=== PATIENT | male | born 1975 | race Caucasian/White ===

== ENCOUNTER 2016-11-06 23:46 | Emergency (ER) | payer OTHER ==
[2016-11-06 23:42] LABS: BASOPHIL% 0.2 % (0-2.5); DIFF IND NO; EOSINOPHIL# 0.2 X10e3 (0-0.7); EOSINOPHIL% 1.2 % (0.0-7.0); HEMATOCRIT 43.4 % (38.0-50.0); HEMOGLOBIN 14.8 gm/dL (13.0-16.0); LYMPHOCYTE# 1.4 X10e3 (1.0-3.5); LYMPHOCYTE% 9.7 % (17.0-45.0); MEAN CELL VOLUME 94.8 FL (83-96); MEAN CORPUSCULAR HEMOGLOBIN 32.3 PG (28-34); MEAN PLATELET VOLUME 7.6 FL (6.5-11.5); MONOCYTE# 1.3 X10e3 (0-1.0); MONOCYTE% 8.4 % (3.0-12.0); NEUTROPHIL# 12.1 X10e3 (1.5-7.1); NEUTROPHIL% 80.5 % (40-75); PLATELET COUNT 310 X10e3 (140-420); RED BLOOD COUNT 4.58 X10e (3.90-5.60); RED CELL DISTRIBUTION WIDTH 13.2 % (11.0-15.5)
[~2016-11-06 23:46] MED LIST: BACTRIM DS TABL1 TA2 PO; FLEXERIL; FLEXERIL10 M1 PO; HYDROCODON-ACE1 EAC4 PO; HYDROCORTISONE30 G2 EXT; IBUPROFEN; KEFLEX500 M1 PO; KETOPROFEN PO; NAPROSYN500 MG PO; NO MEDICATIONS
[2016-11-06 23:54] LABS: ALBUMIN SERUM 4.9 g/dL (3.5-5.0); ALKALINE PHOSPHATASE 94 U/L (32-92); ALT (SGPT) 21 U/L (10-40); AST (SGOT) 23 U/L (10-42); BILIRUBIN, DIRECT 0.1 mg/dL (0.0-0.2); BILIRUBIN,INDIRECT 0.5 mg/dL (0.0-0.9); BILIRUBIN,TOTAL 0.6 mg/dL (0.2-2.0); BLOOD UREA NITROGEN 8 mg/dL (9-23); CALCIUM SERUM 9.8 mg/dL (8.4-10.2); CARBON DIOXIDE 22 mmol/L (22-31); CHLORIDE 100 mmol/L (100-111); CREATININE SERUM 0.8 mg/dL (0.6-1.4); GLUCOSE FASTING 113 mg/dL (70-110); POTASSIUM 4.4 mmol/L (3.5-5.1); PROTEIN TOTAL SERUM 8.3 g/dL (6.0-8.3); SALICYLATE <4.0 mg/dL; SODIUM 134 mmol/L (135-145)
[2016-11-06 23:55] LABS: ACETAMINOPHEN <10 ug/mL; ALCOHOL BLOOD <5 mg/dL (0)
== END 2016-11-07 06:59 ==
LOC: CED 23:46
PROVIDERS: Emergency Medicine
DX: S51.811A Laceration without foreign body of right forearm, initial encounter (principal); M54.5 Low back pain; G89.29 Other chronic pain; F17.200 Nicotine dependence, unspecified, uncomplicated; X78.9XXA Intentional self-harm by unspecified sharp object, initial encounter
CPT/HCPCS: 36415; 80048; 80076; 85025; 96360; 96372; 99285; G0480; J3486

== ENCOUNTER 2016-11-07 07:40 | Inpatient (IN) | payer OTHER ==
--- NOTE | ~2016-11-07 | PN ---
Unit #: [id number] #: [id number] Patient: GAVIN WINN [id number] [facility] [address] [place] [address] [id number] I MR#: [id number] NAME: GAVIN WINN ROOM: P130 Age: 41 Sex: M Admission Date: 11/07/2016 : 1975 Attending Physician: Abe Christianson M.D. Admitting Physician: Abe Christianson M.D. Primary Care Physician: Lary Keller PROGRESS NOTES DATE 11/11/2016 DISCUSSION Mr. Winn is a 41-year-old, white male who was seen today and chart was reviewed and case was discussed with the staff. He has been anxious, withdrawn and seclusive to himself. Meanwhile, He has been taking the medication and tolerating them fairly well with no reported side effects. MENTAL STATUS EXAM Middle-aged white male who was casually dressed with fair personal hygiene, appears to be in no acute distress or discomfort. He was awake and alert with impaired attention and concentration. His mood was anxious with congruent affect. He reports having suicidal ideation but denies any homicidal ideation. His insight and judgement remains slightly impaired. TREATMENT PLAN 1. We will continue him on his current medications and treatment protocol. We will monitor his response to the medication and make further adjustments as needed. 2. We will continue to follow up. Dictated by... Lary Meadows/layla TD: 11/12/2016 22:03 JOB #: [id number] Unit #: [id number] #: [id number] Patient: GAVIN WINN PROGRESS NOTES Page 1 of 1 X Abe Christianson MD X PROGRESS NOTE
--- NOTE | ~2016-11-07 | DS ---
Unit #: [id number] #: [id number] Patient: GAVIN WINN [id number] [facility] [address] [place] [address] [id number] I MR#: [id number] NAME: GAVIN WINN ROOM: P130 Age: 41 Sex: M Admission Date: 11/07/2016 : 1975 Discharge Date: 11/12/2016 Attending Physician: Abe Christianson M.D. Primary Care Physician: Naga Caputo M.D. DISCHARGE SUMMARY IDENTIFYING DATA Mr. Winn is a 41-year-old white male, who is a resident of [place], [place], and was transferred to us from emergency room. DISCHARGE DIAGNOSES Psychiatric: Major depressive disorder, recurrent, moderate, without psychotic features. Medical: Chronic pain. Stressors: Moderate psychosocial stressors. HISTORY OF PRESENT ILLNESS Please see initial psychiatric evaluation for details. PAST PSYCHIATRIC HISTORY Please see initial psychiatric evaluation for details. PAST MEDICAL HISTORY Please see initial psychiatric evaluation for details. HOSPITAL COURSE The patient was admitted to the adult psychiatric unit at [facility] madelyn Singer and was oriented to the hospital environment. Routine p.r.n. medications were initiated and he was started back on his home medications, and Seroquel and Celexa were initiated to help with depression, and Seroquel was gradually titrated to 200 mg at bedtime and he was closely monitored. He was initially seen to be very withdrawn, depressed, seclusive to himself; however, he was slowly starting to show a therapeutic response to the medications with improvement in depression as well as sleep, which has been his main concern and was able to show a decent therapeutic response to treatment intervention including medication management with improvement in depression and anxiety and was denying any suicidal ideations, intent or plan and was wanting to go home and was willing to continue treatment on an outpatient basis and was not seen to be a danger to self or anyone else as he was denying any suicidal thoughts, intent, or plan and therefore it was decided that he will be maintained on his current medications and will be discharged home and will continue treatment on an outpatient basis. DISCHARGE MEDICATIONS Lortab 10/325 one every 4 hours as needed; Flexeril 10 mg every 8 hours as needed for pain; Protonix 40 mg b.i.d. for acid reflux; Celexa 20 mg a day Unit #: [id number] #: [id number] Patient: WINNGAVIN R for depression; Seroquel 200 mg at bedtime for depression. DISCHARGE CONDITION Stable. PROGNOSIS Fair. Dictated by... Lary Meadows/jame TD: 11/12/2016 07:05 JOB #: [id number] DISCHARGE SUMMARY Page 1 of 1 X Abe Christianson MD X DISCHARGE SUMMARY
--- NOTE | ~2016-11-07 | PN ---
Unit #: [id number] #: [id number] Patient: GAVIN WINN [id number] [facility] [address] [place] [address] [id number] I MR#: [id number] NAME: GAVIN WINN ROOM: P130 Age: 41 Sex: M Admission Date: 11/07/2016 : 1975 Attending Physician: Abe Christianson M.D. Admitting Physician: Abe Christianson M.D. Primary Care Physician: Lary Keller PROGRESS NOTES DATE OF SERVICE: 11/08/2016 SUBJECTIVE Mr. Winn is a 41-year-old white male with mood disorder and psychosis, who was seen today and chart was reviewed and the case was discussed with the staff. He has been anxious, restless, and withdrawn and rather seclusive to himself. Meanwhile, he has been cooperative with the treatment recommendations and has been taking the medications and tolerating them fairly well with no reported side effects. MENTAL STATUS EXAMINATION Middle-aged white male, who was casually dressed with fair personal hygiene, appears to be in no acute distress or discomfort. He was awake and alert on interaction with intact orientation. His mood was anxious with a congruent affect. His speech was slow and restricted in content. He denies any suicidal or homicidal ideations and also denies any auditory or visual hallucinations. His insight and judgment remain slightly impaired. TREATMENT PLAN 1. We will continue him on his current treatment protocol and we will monitor his response to the medications and make further adjustments as needed. 2. We will continue to follow up. Dictated by... Lary Meadows/jame TD: 11/08/2016 20:26 JOB #: [id number] Unit #: [id number] #: [id number] Patient: GAVIN WINN PROGRESS NOTES Page 1 of 1 X Abe Christianson MD PROGRESS NOTE
--- NOTE | ~2016-11-07 | CO ---
Unit #: [id number] #: [id number] Patient: GAVIN WINN [id number] [place] [address] [id number] I MR#: [id number] NAME: GAVIN WINN ROOM: P130 Age: 41 Sex: M Admission Date: 11/07/2016 : 1975 Attending Physician: Abe Christianson M.D. Primary Care Physician: Naga Caputo M.D. Consultation Date: 11/10/2016 CONSULTATION REPORT HISTORY OF PRESENT ILLNESS Gavin cut himself with a razor blade. He was seen in the ER. He was given a tetanus shot, but no antibiotics. He now has a 3 cm laceration on his left forearm that does have some redness and oozing of yellowish discharge. He is concerned about possible bacterial infection. He has no complaints. PHYSICAL EXAMINATION CARDIAC: Regular rate and rhythm. No murmurs, gallops, or rubs. RESPIRATORY: Clear to auscultation bilaterally. SKIN: 3 cm laceration in left forearm with mild erythema and mild warmth, yellowish drainage. ASSESSMENT AND PLAN Laceration in left forearm. We will begin Keflex 500 mg p.o. t.i.d. for 10 days. Please notify if symptoms are unresolved. Dictated by... Chai Rodriguez/jame TD: 11/23/2016 00:50 JOB #: [id number] CONSULTATION REPORT Page 1 of 1 X HALINA FIGUEROA APRN X CONSULTATION REPORT
--- NOTE | ~2016-11-07 | PA ---
Unit #: [id number] #: [id number] Patient: GAVIN WINN [id number] [facility] [address] [place] [address] [id number] I MR#: [id number] NAME: GAVIN WINN ROOM: P130 Age: 41 Sex: M Admission Date: 11/07/2016 : 1975 Date of Assessment: 11/07/2016 Attending Physician: Abe Christianson M.D. Admitting Physician: Abe Christianson M.D. Primary Care Physician: Naga Caputo M.D. PSYCHIATRIC ASSESSMENT DATE OF SERVICE 11/07/2016. IDENTIFYING DATA Mr. Winn is a 41-year-old white male, who is a resident of [place], [place], and was transferred to us from the emergency room. CHIEF COMPLAINT "Depression and thoughts of killing myself. I cut my wrist in a suicide attempt." HISTORY OF PRESENT ILLNESS Mr. Winn is a 41-year-old white male, who was directly admitted to us from [facility], where he was seen to be agitated and pacing the hallways, stated that he is ready to leave and that it was difficult to get information from the patient in the beginning as indicated that he is just really tired and stated that his called fisher terrapin when the patient came due to multiple cuts on his arm and neck and was reporting some vague stating that he is just stressed and his work is slow and he has to move out of the house and did not of having to move other than a friend is helping him find a place and does report increasing depression, anxiety, agitation, irritability, multiple psychosocial stressors, feelings of hopelessness and helplessness, and suicidal ideations and actively engaging in self-harming behavior and as such, recommendation for inpatient level of care for safety and stabilization was made and the patient was transferred to us. SUBSTANCE ABUSE HISTORY The patient has history of alcohol, cannabis, opioids, and benzodiazepine abuse, though he denies any current regular drug abuse. PAST PSYCHIATRIC HISTORY The patient has had history of outpatient psychiatric treatment in the past. Review of the medical records indicate that currently he is not active in treatment program, and is not seeing a psychiatrist, not taking any psychotropic medications. PAST MEDICAL HISTORY The patient's medical history is significant for chronic pain. ALLERGIES NSAIDs, ibuprofen. Unit #: [id number] #: [id number] Patient: GAVIN WINN PERSONAL AND SOCIAL HISTORY A 41-year-old white male, who reports that he is and lives at home with his and has fairly decent social support system. MENTAL STATUS EXAMINATION Middle-aged white male who was casually dressed with fair personal hygiene, appears to be in no acute distress or discomfort. He was awake and alert on interaction with intact orientation to time, place, and person. His mood was anxious and depressed with a congruent affect. His speech was slow and restricted in content. His thought processes were disorganized with some looseness of associations and suicidal ideations. His insight and judgment remain significantly impaired. DIAGNOSTIC IMPRESSION Psychiatric: Major depressive disorder, recurrent, moderate, without psychotic features. Medical: Chronic pain. Stressors: Moderate psychosocial stressors. TREATMENT PLAN 1. The patient has presented with history of mood disorder and has been decompensating and will need inpatient hospitalization for safety and stabilization. We will start him back on his home medications. We will adjust the medications and monitor response. 2. Supportive therapy was provided to the patient. 3. Safe, structured, and nourishing environment will be provided. ESTIMATED LENGTH OF STAY 5 to 7 days. ABILITY TO HELP SELF Limited. WILLINGNESS TO HELP SELF The patient appears to be willing to help self. STRENGTHS 1. Communicative. 2. Cooperative. PROBLEMS 1. Chronic dysphoric symptoms. 2. Poor social support system. DISCHARGE CRITERIA This will be contingent upon the patient's ability to show resolution of his depression and anxiety and his ability to stay safe to himself, particularly after discharge from the hospital. Dictated by... Lary Meadows/jame TD: 11/08/2016 06:50 JOB #: [id number] Unit #: [id number] #: [id number] Patient: GAVIN WINN PSYCHIATRIC ASSESSMENT Page 1 of 1 X Abe Christianson MD PSYCHIATRIC ASSESSMENT
--- NOTE | ~2016-11-07 | PN ---
Unit #: [id number] #: [id number] Patient: GAVIN WINN [id number] [facility] [address] [place] [address] [id number] I MR#: [id number] NAME: GAVIN WINN ROOM: P130 Age: 41 Sex: M Admission Date: 11/07/2016 : 1975 Attending Physician: Abe Christianson M.D. Admitting Physician: Abe Christianson M.D. Primary Care Physician: Lary Keller PROGRESS NOTES DATE OF SERVICE 11/09/2016 DISCUSSION Mr. Winn is a 41-year-old white male who was seen today. Chart was reviewed and case was discussed with the staff. He has been anxious, withdrawn though has not shown any agitation or irritability and has been cooperative with the treatment recommendations as he has been taking the medications and tolerating them fairly well with no reported side effects. MENTAL STATUS EXAMINATION Middle-aged white male who is casually dressed with fair personal hygiene, appears to be in no acute distress or discomfort. He was awake and alert on interaction with impaired attention and concentration. His mood is anxious with congruent affect. Speech is slow and restricted in content. His thought processes were disorganized with some looseness of association. His insight and judgment remain significantly impaired. TREATMENT PLAN 1. We will continue him on his current medications and treatment protocol. We will monitor his response to the medications and make further adjustments as needed. 2. We will continue to follow up. Dictated by... Abe Christianson M.D. IAA/bzg TD: 11/09/2016 10:39 JOB #: [id number] Unit #: [id number] #: [id number] Patient: GAVIN WINN PROGRESS NOTES Page 1 of 1 X Abe Christianson MD PROGRESS NOTE
--- NOTE | ~2016-11-07 | HP ---
Unit #: [id number] #: [id number] Patient: GAVIN WINN [id number] [facility] [address] [place] [address] [id number] I MR#: [id number] NAME: GAVIN WINN ROOM: P130 Age: 41 Sex: M Admission Date: 11/07/2016 : 1975 Attending Physician: Abe Christianson M.D. Admitting Physician: Abe Christianson M.D. Primary Care Physician: Naga Caputo M.D. HISTORY AND PHYSICAL HISTORY OF PRESENT ILLNESS Gavin is a 41 year old admitted to [address] [place] [address] with depression and after a significant suicidal attempt by hanging and cutting both arms. PAST MEDICAL HISTORY Obesity. PAST SURGICAL HISTORY Carpal tunnel release. ALLERGIES Ibuprofen. SOCIAL HISTORY Smokes 1-1/2 packs per day. Drinks alcohol on occasion. Admits to using marijuana frequently and has a history of abusing opioids and benzodiazepines. FAMILY HISTORY Medically noncontributory. REVIEW OF SYSTEMS CONSTITUTIONAL: No fever or chills. HEENT: Denies any sore throat, ear pain or runny nose. CARDIOVASCULAR: Denies chest pain, irregular heart rhythm or palpitations. CHEST: Denies shortness of breath or cough. No hemoptysis. GASTROINTESTINAL: Denies nausea, vomiting, diarrhea or chronic constipation. ENDOCRINE: Denies history of increased thirst or urination. No recent significant weight loss or gain. GENITOURINARY: Denies dysuria, frequency, or hematuria. SKIN: Denies any rashes. HEMATOLOGIC: Denies history of increased bleeding or bruising. MUSCULOSKELETAL: Denies any hot, swollen joints. No generalized muscle pain. NEUROLOGIC: Denies problems with vision or speech. No frequent, severe headaches. No numbness, tingling or weakness in any extremities. Denies loss of bladder or bowel control. CURRENT MEDICATIONS 1. Desyrel 100 mg q.h.s. 2. Protonix 40 mg b.i.d. 3. Flexeril 10 mg q. 8 hours p.r.n. Unit #: [id number] #: [id number] Patient: GAVIN WINN 4. [place] 10/325 one tab q. 4 hours p.r.n. 5. Milk of Magnesia p.r.n. 6. Maalox p.r.n. 7. Tylenol p.r.n. 8. Nicotine patch 14 mg daily. PHYSICAL EXAMINATION GENERAL: Alert, obese, in no apparent distress. VITAL SIGNS: Blood pressure 120/62, heart rate 80, respirations 16, temperature 98.6. WEIGHT: 225. HEIGHT: 6 feet 4 inches. SKIN: Warm and dry without rash. He has significant lacerations to both forearms. Multiple sites are sutured. There is adequate skin approximation with some localized redness. HEENT: Normocephalic. TMs not viewed. Oral and nasal passages clear. Conjunctivae clear. PERRLA. EOMs intact. NECK: He has significant ligature handy along the back of his neck. HEART: Regular rate and rhythm without murmur. LUNGS: Clear. ABDOMEN: Soft, nontender. : Not done. EXTREMITIES: No evidence of cyanosis, clubbing or edema. Moves all without focal deficit. NEUROLOGICAL: Grossly within normal limits. Cranial Nerves: II: Visual leyva are intact. III, IV AND : Extraocular movements are intact. Pupils are equal, round and reactive to light. V: Facial sensation is grossly normal. VII: Facial movements and expression are normal. VIII: Auditory acuity grossly intact. IX, X: Uvula is midline. Phonation is normal. XI: Patient shrugs shoulders and turns head normally. XII: Tongue protrudes in the midline. Sensory and Motor Function: Sensory and motor sensation is grossly normal. Motor: moves all extremities well. Coordination: Gait is normal. Deep Tendon Reflexes: Intact. IMPRESSION 1. Psychiatric admission. 2. Self-inflicted laceration sustained prior to this admission. RECOMMENDATIONS PSYCHIATRIC: Per psychiatrist. MEDICAL: 1. See no contraindications to participate in facility's activities. 2. Keep these sutured areas clean with soap and water. Suture removal in 7 to 10 days. MEDICAL PROGNOSIS Good. MEDICAL CONDITION Stable. Dictated by... Bailey Delaney P.A.-C. for Unit #: [id number] #: [id number] Patient: GAVIN WINN Lary Camejo/faisal TD: 11/07/2016 19:40 JOB #: [id number] HISTORY AND PHYSICAL Page 1 of 1 X Bailey Delaney HISTORY AND PHYSICAL
--- NOTE | ~2016-11-07 | PN ---
Unit #: [id number] #: [id number] Patient: GAVIN WINN [id number] [facility] [address] [place] [address] [id number] I MR#: [id number] NAME: GAVIN WINN ROOM: P130 Age: 41 Sex: M Admission Date: 11/07/2016 : 1975 Attending Physician: Abe Christianson M.D. Admitting Physician: Abe Christianson M.D. Primary Care Physician: Lary Keller PROGRESS NOTES DATE 11/10/2016 DISCUSSION Mr. Winn is a 41-year-old, white male who was seen today and chart was reviewed and case was discussed with the staff. He has been anxious, withdrawn though has not shown any agitation, irritability or behavioral problems and has been cooperative with treatment recommendations as he has been taking medications and tolerating them fairly well with no reported side effects. MENTAL STATUS EXAM Middle-aged white male who was casually dressed with fair personal hygiene, appears to be in no acute distress or discomfort. He was awake and alert on interaction with intact orientation. His mood was anxious with congruent affect. He denies any suicidal or homicidal ideation. His insight and judgement remains slightly impaired. TREATMENT PLAN 1. We will continue him on his current medications and treatment protocol. We will monitor his response and make further adjustments as needed. 2. We will continue to follow up. Dictated by... Lary Meadows/layla TD: 11/12/2016 01:45 JOB #: [id number] Unit #: [id number] #: [id number] Patient: GAVIN WINN PROGRESS NOTES Page 1 of 1 X Abe Christianson MD X PROGRESS NOTE
== END 2016-11-12 11:24 | DRG 885 ==
LOC: P1S 07:40
DX: F33.1 Major depressive disorder, recurrent, moderate (principal); R45.851 Suicidal ideations; G89.29 Other chronic pain; Z91.5 Personal history of self-harm

== ENCOUNTER 2016-12-05 18:47 | Inpatient (IN) | payer OTHER ==
--- NOTE | ~2016-12-05 | CO ---
Unit #: [id number] #: [id number] Patient: GAVIN WINN [id number] [address] [place], [place] [address] [id number] MR#: [id number] NAME: GAVIN WINN ROOM: [facility] Age: 41 Sex: M Admission Date: 12/05/2016 : 1975 Attending Physician: Srinivas Herrmann M.D. Primary Care Physician: Naga Caputo M.D. CONSULTATION REPORT REASON FOR CONSULTATION We are asked to see him by Dr. Eli Lynne for respiratory failure. HISTORY OF PRESENT ILLNESS Mr. Winn is a 41-year-old male with some history of psychiatric difficulties in the past who presents through the ER with poorly responsive mental status and thought to have an overdose. It was thought that he took SEROquel and Flexeril and then maybe even BuSpar. He was intubated, I think, in our ER. He is now on the ventilator. Overnight, he was on Diprivan. PAST MEDICAL HISTORY Significant for depression, polysubstance abuse, gout, chronic pain syndrome, gastroesophageal reflux disease, and carpal tunnel syndrome. MEDICATIONS At home had included: 1. SEROquel. 2. Nexium. 3. Flexeril. ALLERGIES Ibuprofen. SOCIAL HISTORY He does smoke about a pack a day. FAMILY HISTORY Impossible to obtain. REVIEW OF SYSTEMS Impossible to obtain. PHYSICAL EXAMINATION GENERAL APPEARANCE: He presents as a middle age male presently intubated. VITAL SIGNS: Temperature was 96.7, pulse 93, respirations 18, blood pressure 139/68, and saturation 98% on the ventilator. NECK: Without adenopathy. HEENT: He is orally intubated. LUNGS: Reveals his breathing is not labored. Lungs are fairly clear bilaterally. HEART: Regular. ABDOMEN: Soft and bowel sounds are present. EXTREMITIES: Without edema. Unit #: [id number] #: [id number] Patient: GAVIN WINN NEUROLOGIC: Early on, he was not responsive to gentle stimulus. I did not give him noxious stimulus. At that time, he was on Diprivan. Since then, I revisited him off the Diprivan and he will squeeze bilaterally equally to command. DIAGNOSTIC STUDIES IMAGING: His chest x-ray to my exam revealed an endotracheal tube okay. No obvious infiltrate. LABORATORY: Blood gas: 7.36, pCO2 48, and pO2 66 on 40%, AC 12, 650 tidal volume, and 5 of PEEP. White blood cell count was 8.1, H and H 12.4 and 38, and 248,000 platelets. Serum chemistries: BUN 6, creatinine 0.9, calcium was 8.3. Acetaminophen level, salicylate level, and alcohol level all low. Tox screen: Benzodiazepines positive, amphetamines positive, marijuana positive, and TCA is positive. IMPRESSION 1. Overdose. 2. Suicide attempt. 3. Respiratory failure due to the above. 4. Depression. PLAN We will hold his Diprivan and see if we can wean and extubate him. He certainly is more responsive than he was earlier, but I would like him more responsive than this before we extubate him. Thank you for allowing me to participate in the care of this patient. Dictated by... Benito Marinelli M.D. VICTOR MANUEL/daniel TD: 12/07/2016 08:35 JOB #: [id number] CC: Eli Lynne M.D. CONSULTATION REPORT Page 1 of 1 X Benito Marinelli MD CONSULTATION REPORT
--- NOTE | ~2016-12-05 | EKG ---
PATIENT: GAVIN WINN UNIT #: [id number] Ventricular Rate: 90 BPM Atrial Rate: 90 BPM P-R Interval: 178 ms QRS Duration: 104 ms Q-T Interval: 366 ms QTC Calculation(Bezet): 447 ms P Biggers: 64 degrees Calculated R Biggers: 72 degrees Calculated T Biggers: 34 degrees Diagnosis Line: Normal sinus rhythm Early repolarization Diagnosis Line: Normal ECG Diagnosis Line: When compared with ECG of 05-DEC-2016 18:45, Diagnosis Line: (unconfirmed) Diagnosis Line: Sinus rhythm has replaced Atrial flutter Diagnosis Line: Vent. rate has decreased BY 56 BPM Diagnosis Line: Nonspecific T wave abnormality has replaced Diagnosis Line: inverted T waves in Inferior leads Diagnosis Line: Confirmed by DAVON VALENCIA MD ([id number]) on 12/09/2016 Diagnosis Line: 3:57:09 PM INTERPRETING MD: ERIK NICHOLAS
--- NOTE | ~2016-12-05 | CR72 ---
[facility] A Service of [facility] RADIOLOGY TEXT RESULTS PATIENT: GAVIN WINN [facility] 564-01 : 75 UNIT #: [id number] AGE: [address]: Srinivas Herrmann MD SEX: M ORDER DR: [id number] [facility] [address]. [place], [place] [address] [id number] I MR#: [id number] Acc #: [id number] NAME: GAVIN WINN : 1975 SEX: M STUDY DATE/TIME: 12/08/2016 5:05 [facility] ROOM: [facility] STUDY DESCRIPTION: CR Chest Single View Portable Attending Physician: Srinivas Herrmann M.D. Ordering Physician: Rd Valdivia M.D. Primary Care Physician: Naga Caputo M.D. MEDICAL IMAGING REPORT This report is preliminary unless electronic signature is present EXAM Portable chest. HISTORY Acute respiratory failure, shortness of air x3 days. COMPARISON 12/06/2016 FINDINGS There has been interval removal of patient's endotracheal tube. No focal airspace disease or consolidation. No effusions. Heart, mediastinum, great vessels and bony thorax appear normal. No visible pneumothorax. Dictated by... Marilu Felton M.D. THIS IS AN ELECTRONICALLY VERIFIED REPORT Marilu Felton M.D. at 12/08/2016 10:06 PM BOYD/daniel TD: 12/08/2016 12:35 JOB #: [id number] MEDICAL IMAGING REPORT Page 1 of 1 COPY
--- NOTE | ~2016-12-05 | EKG ---
PATIENT: GAVIN WINN UNIT #: [id number] Ventricular Rate: 175 BPM Atrial Rate: 170 BPM QRS Duration: 96 ms Q-T Interval: 288 ms QTC Calculation(Bezet): 491 ms Calculated R [place]: 82 degrees Calculated T [place]: -23 degrees Diagnosis Line: Supraventricular tachycardia Diagnosis Line: ST and T wave abnormality, consider inferior Diagnosis Line: ischemia Diagnosis Line: Abnormal ECG Diagnosis Line: No previous ECGs available Diagnosis Line: Confirmed by DAVON VALENCIA MD ([id number]) on 12/09/2016 Diagnosis Line: 3:50:47 PM INTERPRETING MD: ERIK NICHOLAS
--- NOTE | ~2016-12-05 | CO ---
Unit #: [id number] #: [id number] Patient: GAVIN WINN [id number] [facility]. [place], [place] [address] [id number] I MR#: [id number] NAME: GAVIN WINN ROOM: 564 Age: 41 Sex: M Admission Date: 12/05/2016 : 1975 Attending Physician: Srinivas Herrmann M.D. Primary Care Physician: Naga Caputo M.D. Consultation Date: 12/07/2016 CONSULTATION REPORT REASON FOR CONSULTATION Depression, overdose, suicide attempt. HISTORY OF PRESENT ILLNESS Mr. Gavin Winn is a 41-year-old white male, seen in room 564 at [facility] on 12/07/2016. The patient dressed in hospital attire, lying comfortably in bed. The patient has a sitter. The patient reported that he took pain medication and ended up in the hospital. The patient reported that he was in pain. The patient has a history of major depressive disorder, history of polysubstance abuse, admitted after overdose. The patient had argument with his and returned home at 3:00 p.m. The patient was confused, hallucinating, fell on the floor. The patient was subsequently admitted at [facility], needed intubation. The patient's urine drug screen was positive for marijuana and amphetamine. The patient has a history of previous suicide attempt also and was treated at [facility] in past. The patient has a self-inflicted laceration on his left arm. PAST PSYCHIATRIC HISTORY Remarkable for history of previous suicide attempt, laceration, and history of inpatient treatment at [facility]. The patient was treated at [facility] from 11/07/2016 to 11/12/2016 with major depressive disorder. MEDICAL HISTORY Remarkable for gout, chronic pain, GERD, carpal tunnel release. MEDICATIONS Seroquel, BuSpar, Nexium, Flexeril. FAMILY HISTORY AND SOCIAL HISTORY The patient lives with his , good support system. History of substance abuse as mentioned above. No history of abuse. REVIEW OF SYSTEMS Complete review of systems is unremarkable. MENTAL STATUS EXAMINATION Vital signs; temperature 97.7, pulse 96, respirations 18, blood pressure 127/76, oxygen saturation 95%. General appearance; the patient dressed in hospital attire, lying comfortably in bed. Attention span and concentration, fair. Speech, regular rate. Oriented in time, place, and person. Mood and affect, sad, dysphoric, irritable. Thought process, coherent. Thought content, the patient denied any thoughts of harming Unit #: [id number] #: [id number] Patient: GAVIN WINN self at this time, but admitted with suicide attempt by taking overdose, history of previous suicide attempt. Denied any hallucination. Recent and remote memory, fair. Language, intact. Fund of knowledge, fair. Insight and judgment, fair to slightly impaired. DIAGNOSES Psychiatric: 1. Major depressive disorder, recurrent, severe, F33.3. 2. Opioid abuse, moderate, F11.20. Secondary diagnosis: Deferred. Medical diagnosis: Please refer to H and P. Stressors: Psychosocial stressors. ASSESSMENT/PLAN 1. Supportive psychotherapy and psychoeducation provided to the patient. 2. Educated about benefits and side effects of medication and course and prognosis of illness. 3. Advised to transfer the patient to [facility] for inpatient psychiatric treatment. In the meantime, continue with 72-hour hold and one-to-one monitoring. We will closely follow. Please feel free to call if any questions telephone #[phone]. Dictated by... Lary Rodriguez/jame TD: 12/08/2016 03:44 JOB #: [id number] CONSULTATION REPORT Page 1 of 1 X Derek Pickard MD X CONSULTATION REPORT
--- NOTE | ~2016-12-05 | CR72 ---
[facility] A Service of [facility] RADIOLOGY TEXT RESULTS PATIENT: GAVIN WINN LOCATION: [facility] : [birth year] UNIT #: [id number] AGE: [address]: Srinivas Herrmann MD SEX: M ORDER DR: [id number] [facility] [address] [facility]. [place], [place] [address] [id number] E MR#: [id number] Acc #: [id number] NAME: GAVIN WINN : 1975 SEX: M STUDY DATE/TIME: 12/05/2016 20:05 UNIT: TANVI ROOM: STUDY DESCRIPTION: CR Chest Single View Portable Attending Physician: Cesia Haider M.D. Ordering Physician: Cesia Haider M.D. Primary Care Physician: Naga Caputo M.D. MEDICAL IMAGING REPORT This report is preliminary unless electronic signature is present EXAM Portable chest 12/05/2016 HISTORY Respiratory failure, intubated, status post overdose today. FINDINGS The heart is normal in size. Endotracheal tube has been inserted with the tip approximately 3 cm above the malcolm. The lungs are clear. There are no pleural effusions. IMPRESSION Endotracheal tube tip 3 cm above the malcolm. No active pulmonary disease. Dictated by... Ramos Nielson M.D. THIS IS AN ELECTRONICALLY VERIFIED REPORT Ramos Nielson M.D. at 12/06/2016 2:20 PM KRT/pcl TD: 12/05/2016 21:00 JOB #: [id number] MEDICAL IMAGING REPORT Page 1 of 1 COPY
--- NOTE | ~2016-12-05 | A ---
[facility] DATE: 12/06/16 Patient: GAVIN WINN Physician: DYLAN Address: [facility] Room/Bed: [address], Zip: [place] [address] Admit Date: 12/05/16 Date of : [birth year] Height: 6 0 Weight: 200 91 NUTRITIONAL ASSESSMENT: REASON: NPO IN ICU ASSESSMENT PT IS 41 Y.O. MALE ADMITTED FOR OVERDOSE, ?SUICIDE ATTEMPT PMH: POLYSUBSTANCE ABUSE, GOUT, GERD, DEPRESSION W/HISTORY OF SUICIDE ATTEMPTS Anthropometrics: 6'4" (PER RD OBSERVATION), WT: 200# (91 KG), BMI: 24.3, 99%IBW Labs: BUN: 6, CA+:8.3, LIPASE: 17 Meds: PROPOFOL, KCL, ZOFRAN, PROTONIX I/O & Bowel function: 1746/1140 Skin Integrity: SCARS/LACERATIONS NOTED BILATERAL ARMS Estimated Nutrition Needs: 7051-9282 KCAL (25-30 KCAL/KG BW) 91-118 G PRO (1.0-1.3 G PRO/KG BW) FLUIDS CONSISTENT W/KCAL NEEDS OR MANAGE PER MD Assessment: CHART REVIEWED AND EVENTS NOTED. PT SEEN FOR NPO IN ICU ASSESSMENT. PT CURRENTLY INTUBATED AND SEDATED W/PROPOFOL (RATE OF 28.4 ML PROVIDING ~750 KCAL FROM LIPIDS). PER RN AND CHART, PT FOUND DOWN AT HOME, ?SUICIDE ATTEMPT, OVERDOSE ON SEROQUEL & FLEXERIL. NO FAMILY IN ROOM AT TIME OF VISIT. NO CURRENT PLANS IN PLACE TO BEGIN ALTERNATIVE NUTRITION SUPPORT. RD TO FOLLOW. SEE RECOMMENDATIONS BELOW. Dx: INADEQUATE ORAL INTAKE R/T DX, PT INTUBATED AEB NPO STATUS. Intervention: 1. NPO Monitoring, Evaluation and Goals: 1. ENTERAL NUTRITION; PROVIDE ~80-100% ESTIMATED NUTRIENT NEEDS 2. ORAL INTAKE; ADVANCE DIET PER CLINICAL SPECIALIST & CONSUME >50% OF MEALS W/NO C/O N/V/D 3. LABS; WNL MONITOR: -WEIGHTS -PLANS FOR SUPPORT -SEDATION RATE? -EXTUBATION? [facility] DATE: 12/06/16 Patient: GAVIN WINN Physician: DYLAN Address: [address] [facility] Room/Bed: [address] State, Zip: [place] [address] Admit Date: 12/05/16 Date of : [birth year] Height: 6 0 Weight: 200 91 Recommendations: 1. IF PT REMAINS INTUBATED FOR >24 HOURS, CONSIDER PLACING DHT AND BEGIN ALTERNATIVE NUTRITION SUPPORT OF JEVITY 1.5 @ 20 ML/HR, ADVANCE 10 ML q 6 HOURS TO GOAL RATE OF 40 ML/HR + SUGAR-FREE PROSTAT BID + SEDATION -TOTAL PROVIDES 2390 KCAL, 91 G PRO, 730 ML FREE H20 ADD FREE H20 FLUSHES PER MD 2. ONCE PROPOFOL D/C'D, RECOMMEND TO BEGIN ALTERNATIVE NUTRITION SUPPORT OF JEVITY 1.5 @ 20 ML/HR, ADVANCE 10 ML Q 6 HOURS TO GOAL RATE OF 65 ML/HR -PROVIDES 2340 KCAL, 99 G PRO, 1186 ML FREE H20 ADD FREE H20 FLUSHES OF 190 ML q 4 HOURS TO MEET PT'S CURRENT ESTIMATED FLUID NEEDS OR MANAGE PER MD 2. ONCE PT EXTUBATED, ADVANCE DIET PER CLINICAL SPECIALIST + HH DIET RD WILL F/U PER PROTOCOL PT IS SEVERELY COMPROMISED Respectfully, GELY MOREIRA MS, RD, LD [facility] cc: client file
--- NOTE | ~2016-12-05 | EKG ---
PATIENT: GAVIN WINN UNIT #: [id number] Ventricular Rate: 146 BPM Atrial Rate: 294 BPM QRS Duration: 102 ms Q-T Interval: 354 ms QTC Calculation(Bezet): 551 ms Calculated R [place]: 78 degrees Calculated T [place]: 61 degrees Diagnosis Line: Atrial flutter with variable A-V block Diagnosis Line: Abnormal ECG Diagnosis Line: When compared with ECG of 05-DEC-2016 16:55, Diagnosis Line: (unconfirmed) Diagnosis Line: Atrial flutter has replaced Sinus rhythm Diagnosis Line: Non-specific change in ST segment in Inferior Diagnosis Line: leads Diagnosis Line: T wave inversion less evident in Inferior leads Diagnosis Line: Confirmed by DAVON VALENCIA MD ([id number]) on 12/09/2016 Diagnosis Line: 3:52:45 PM INTERPRETING MD: ERIK NICHOLAS
--- NOTE | ~2016-12-05 | CR72 ---
[facility] A Service of [facility] RADIOLOGY TEXT RESULTS PATIENT: GAVIN WINN LOCATION: [facility] : 75 UNIT #: [id number] AGE: [address]: Srinivas Herrmann MD SEX: M ORDER DR: [id number] [facility] [address] [place], [place] [address] [id number] MR#: [id number] Acc #: [id number] NAME: GAVIN WINN : 1975 SEX: M STUDY DATE/TIME: 12/05/2016 17:12 UNIT: [facility] ROOM: STUDY DESCRIPTION: CR Chest Single View Portable Attending Physician: Cesia Haider M.D. Ordering Physician: Cesia Haider M.D. Primary Care Physician: Naga Caputo M.D. MEDICAL IMAGING REPORT This report is preliminary unless electronic signature is present EXAM Portable chest 1 view 12/05/2016 COMPARISON None. HISTORY Short of air. Symptoms onset immediately prior to arrival. FINDINGS Negative chest. No consolidation, effusion, or pneumothorax or suspicious nodule. Heart size within normal limits. Dictated by... Naga Quintero M.D. THIS IS AN ELECTRONICALLY VERIFIED REPORT Naga Quintero M.D. at 12/10/2016 10:39 AM RAH/gisele TD: 12/05/2016 18:46 JOB #: [id number] MEDICAL IMAGING REPORT Page 1 of 1 COPY
--- NOTE | ~2016-12-05 | HP ---
Unit #: [id number] #: [id number] Patient: GAVIN WINN [id number] [address] [place], [place] [address] [id number] E MR#: [id number] NAME: GAVIN WINN ROOM: Age: 41 Sex: M Admission Date: 12/05/2016 : 1975 Attending Physician: Cesia Haider M.D. Primary Care Physician: Naga Caputo M.D. HISTORY AND PHYSICAL CHIEF COMPLAINT Overdose. HISTORY OF PRESENT ILLNESS This 41-year-old male with major depressive disorder, history of polysubstance abuse, gout and acid reflux, is admitted following an overdose. His states that she had an argument with the patient, and last saw him normal at 1 p.m. When she returned into the house at 3 p.m. the patient seemed confused. He then began to hallucinate, and fell to the floor on his buttocks kicking at things. She called EMS who brought the patient to this emergency department where the patient was extremely agitated and confused. Required IV fluids, 3 doses of Ativan. He was extremely tachycardic to about 180 and initial EKG was suspicious for SVT. He required intubation for airway protection and currently is on a Diprivan drip. The patient took an unknown amount of Seroquel, unknown amount of Flexeril, possibly BuSpar. Urine toxicology screen is also positive for marijuana and amphetamines. At this time, the patient is less tachycardic to 128. He is partially sedated on a Diprivan drip. A call was also made to Poison Control. PAST MEDICAL HISTORY 1. Major depressive disorder with suicide attempts. Patient was recently admitted to [facility] last month after a suicide attempt, self-inflicted laceration of the left arm. 2. Overdose requiring admission to this facility by myself April 2016. Patient did not require intubation at that time. 3. Gout. 4. Chronic pain. 5. GERD. 6. Carpal tunnel release. ALLERGIES Possibly to anti-inflammatory drugs. HOME MEDICATIONS 1. Seroquel. 2. Possibly BuSpar. 3. Nexium. 4. Flexeril. Will obtain medication list from [facility]. Unit #: [id number] #: [id number] Patient: GAVIN WINN SOCIAL HISTORY The patient lives with his . He smokes about a pack per day of tobacco. Does not drink alcohol. Has used drugs in the past. FAMILY HISTORY Depression. REVIEW OF SYSTEMS Impossible to obtain as patient currently is sedated on a ventilator. PHYSICAL EXAMINATION VITAL SIGNS: Temperature 97.1, heart rate was initially 166, has improved to 127, respirations 26, blood pressure 156/106, O2 saturation 98% FiO2 of 40%. GENERAL: 41-year-old male partially sedated on a ventilator. HEENT: Eyes PERRLA. Pharynx: he is orally intubated. NECK: Supple. CHEST: Rhonchi. HEART: Tachy S1, S2 without murmur. ABDOMEN: Bowel sounds are diminished but are present. Abdomen nontender. No hepatosplenomegaly or masses. EXTREMITIES: Without clubbing, cyanosis, or edema. Pedal pulses are present. Healing laceration over the left forearm. Gouty flare right first MTP. NEUROLOGIC: Sedated on a ventilator, however, he does stiffen up intermittently despite the Diprivan. He is able to move all of his extremities. Does not follow commands. DIAGNOSTIC STUDIES LABORATORY: Hematocrit 43.4, white blood cell count 13.5, normal platelet count. Cardiac markers are negative. Coags are normal. SMA-12 glucose 129, potassium 3.3, alkaline phosphatase 106, normal lipase. Normal BNP. Acetaminophen and alcohol levels are negligible. ABG pH 7.38, pCO2 of 36, pO2 of 129, O2 saturation 95.3% on tidal volume of 650, AC 12, PEEP of 5, FiO2 40%. Urine toxicology screen positive for benzodiazepines, amphetamines, marijuana, TCA. Urinalysis is negative. IMAGING: Chest x-ray no acute disease. CARDIOVASCULAR: Initial EKG atrial tachycardia which could be SVT, heart rate 175, nonspecific ST-wave abnormalities. Repeat EKG atrial tachycardia rate about 146. I am unsure if this is a sinus tachycardia or atrial flutter. Again, nonspecific ST-wave abnormalities. Current rhythm is a sinus tachycardia rate about 130. ASSESSMENT 1. Intentional overdose with Flexeril, Seroquel, possibly BuSpar. Urine toxicology screen is also positive for benzodiazepines, THC, amphetamines. Patient required intubation and sedation to protect airway. The case has also been discussed with Poison Control. 2. Major depressive disorder with suicide attempts in the past. 3. Atrial tachycardia, improved with IV fluids and sedation. 4. Gastroesophageal reflux disease. 5. Polysubstance abuse. 6. Chronic pain issues. 7. Gout with a gouty flare right MTP area. Unit #: [id number] #: [id number] Patient: GAVIN WINN PLAN 1. IV fluids. 2. Supportive treatment. Case was discussed with Poison Control. I will add a small amount of bicarb to the IV fluids given unknown amount of Flexeril and tachycardia. 3. Repeat labs, chest x-ray, EKG in the morning. 4. SCDs for DVT prophylaxis. 5. Proton pump inhibitor. 6. 72-hour hold. Will need [facility] to see when stable. 7. Check salicylate level. 8. Pulmonary consultation. 9. Verify home medicines. Critical care time spent evaluating this patient was 40 minutes. Dictated by Eli Lynne M.D. AML/cs TD: 12/05/2016 21:56 JOB #: [id number] HISTORY AND PHYSICAL Page 1 of 1 X Eli Lynne MD HISTORY AND PHYSICAL
--- NOTE | ~2016-12-05 | DS ---
Unit #: [id number] #: [id number] Patient: GAVIN WINN [id number] [address] [address] [id number] I MR#: [id number] NAME: GAVIN WINN ROOM: 564 Age: 41 Sex: M Admission Date: 12/05/2016 : 1975 Discharge Date: 12/08/2016 Attending Physician: Srinivas Herrmann M.D. Primary Care Physician: Naga Caputo M.D. DISCHARGE SUMMARY REASON FOR ADMISSION Drug overdose. HISTORY OF PRESENT ILLNESS/HOSPITAL COURSE The patient is a 41-year-old male, prior history of major depressive disorder, polysubstance abuse, chronic pain syndrome, chronic narcotic dependence, gout, acid reflux, admitted secondary to suicidal intent/overdose. Please see H and P for complete details for initial part of hospital stay. Patient had clear suicidal ideation. He took several of his prescription medications with clear intent. He was subsequently intubated, placed in ICU. Consultation was placed to Dr. Valdivia and associates for an project account manager standpoint. He was gradually extubated, placed on telemetry floor. He was placed on routine medications while there. He underwent routine laboratory studies, most were within normal limits. Currently he is alert and oriented x3. Dr. Pickard, [facility] has [facility] and evaluated the patient. [facility]. He does have a prior history of chronic pain syndrome to which I will give him one hydrocodone prior to transfer. FINAL DISCHARGE DIAGNOSES 1. Acute hypoxic respiratory failure secondary to drug overdose. 2. Major depressive disorder. 3. Prior history of numerous suicidal ideations/attempts. 4. Polysubstance abuse. 5. Gout. 6. Chronic pain syndrome. 7. Gastroesophageal reflux disease. 8. Carpal tunnel release history. FINAL DISCHARGE MEDICATIONS 1. Tylenol 650 mg p.o. q.6 h. p.r.n. 2. Omeprazole 20 mg p.o. b.i.d. DISCHARGE CONDITION Unit #: [id number] #: [id number] Patient: GAVIN WINN Stable. DISCHARGE DISPOSITION [facility]. Dictated by... Lary Camejo/marisa TD: 12/08/2016 14:18 JOB #: [id number] DISCHARGE SUMMARY Page 1 of 1 X Srinivas Herrmann MD X DISCHARGE SUMMARY
--- NOTE | ~2016-12-05 | CR72 ---
[facility] A Service of [facility] RADIOLOGY TEXT RESULTS PATIENT: GAVIN WINN LOCATION: [address] : [birth year] UNIT #: [id number] AGE: [address]: Srinivas Herrmann MD SEX: M ORDER DR: [id number] [facility] [address] [place], [place] [address] [id number] I MR#: [id number] Acc #: [id number] NAME: GAVIN WINN : 1975 SEX: M STUDY DATE/TIME: 12/06/2016 4:15 UNIT: [facility] ROOM: [facility] STUDY DESCRIPTION: CR Chest Single View Portable Attending Physician: Eli Lynne M.D. Ordering Physician: Eli Lynne M.D. Primary Care Physician: Naga Caputo M.D. MEDICAL IMAGING REPORT This report is preliminary unless electronic signature is present EXAM AP portable chest 12/06/2016 04:15 HISTORY Respiratory failure with endotracheal tube placement. Shortness of breath. Overdose. Symptoms began 12/06/2016. COMPARISON AP portable chest 12/05/2016 at 20:05. FINDINGS ET tube tip in satisfactory position in the mid-thoracic trachea. Lungs appear clear. Heart size within normal limits. No pleural effusion or pneumothorax is identified. IMPRESSION No acute cardiopulmonary findings. Endotracheal tube appears unchanged. Dictated by... Paty Smith M.D. THIS IS AN ELECTRONICALLY VERIFIED REPORT Paty Smith M.D. at 12/06/2016 10:02 PM KEVIN/sarah TD: 12/06/2016 06:44 JOB #: [id number] MEDICAL IMAGING REPORT Page 1 of 1 COPY
[2016-12-05 17:18] LABS: ARTERIAL BLOOD GAS CARBOXY HB 6.7 %sat (0.0-9.0); ARTERIAL BLOOD GAS HCO3 22.7 mmol/L; ARTERIAL BLOOD GAS MET HB 0.7 %sat (0.0-2.0); ARTERIAL BLOOD GAS PCO2 28.9 mmHg (35.0-45.0); ARTERIAL BLOOD GAS pH 7.503 (7.350-7.450)
[2016-12-05 17:19] LABS: ARTERIAL BLOOD GAS ALLEN TEST POS; ARTERIAL BLOOD GAS ART SITE RIGHT BRACHIAL; ARTERIAL BLOOD GAS DELIVERY NASAL CANNULA; ARTERIAL DRAW? YES
[2016-12-05 17:28] LABS: BASOPHIL% 0.3 % (0-2.5); EOSINOPHIL# 0.1 X10e3 (0-0.7); EOSINOPHIL% 1.1 % (0.0-7.0); HEMATOCRIT 43.4 % (38.0-50.0); HEMOGLOBIN 14.4 gm/dL (13.0-16.0); LYMPHOCYTE# 1.2 X10e3 (1.0-3.5); LYMPHOCYTE% 9.2 % (17.0-45.0); MEAN CELL VOLUME 94.7 FL (83-96); MEAN CORPUSCULAR HEMOGLOBIN 31.5 PG (28-34); MEAN CORPUSCULAR HGB CONC 33.3 g/dL (30-36); MEAN PLATELET VOLUME 7.5 FL (6.5-11.5); MONOCYTE# 0.9 X10e3 (0-1.0); MONOCYTE% 6.9 % (3.0-12.0); NEUTROPHIL# 11.1 X10e3 (1.5-7.1); NEUTROPHIL% 82.5 % (40-75); PLATELET COUNT 278 X10e3 (140-420); RED BLOOD COUNT 4.58 X10e (3.90-5.60); RED CELL DISTRIBUTION WIDTH 13.6 % (11.0-15.5); WHITE BLOOD COUNT 13.5 X10e3 (4.0-10.5)
[2016-12-05 17:32] LABS: DIFF IND NO
[2016-12-05 17:37] LABS: POC - CKMB 1.4 ng/mL (0.0-7.9); POC - TROPONIN <0.05 ng/mL (<=0.05)
[2016-12-05 17:38] LABS: INR 1.1; PROTHROMBIN TIME (PATIENT) 11.4 SECONDS (9.6-11.5)
[2016-12-05 17:43] LABS: ALBUMIN SERUM 4.7 g/dL (3.5-5.0); ALKALINE PHOSPHATASE 106 U/L (32-92); ALT (SGPT) 19 U/L (10-40); AST (SGOT) 21 U/L (10-42); BILIRUBIN, DIRECT 0.1 mg/dL (0.0-0.2); BILIRUBIN,INDIRECT 0.7 mg/dL (0.0-0.9); BILIRUBIN,TOTAL 0.8 mg/dL (0.2-2.0); BLOOD UREA NITROGEN 7 mg/dL (9-23); BUN/CREATININE RATIO 8.75; CALCIUM SERUM 9.3 mg/dL (8.4-10.2); CARBON DIOXIDE 23 mmol/L (22-31); CHLORIDE 103 mmol/L (100-111); CREATININE SERUM 0.8 mg/dL (0.6-1.4); GLUCOSE FASTING 129 mg/dL (70-110); LIPASE 17 U/L (22-51); POTASSIUM 3.3 mmol/L (3.5-5.1); PROTEIN TOTAL SERUM 7.8 g/dL (6.0-8.3); SODIUM 138 mmol/L (135-145)
[2016-12-05 17:44] LABS: URINE SOURCE CLEAN CATCH
[2016-12-05 17:46] LABS: ALCOHOL BLOOD <5 mg/dL (0)
[2016-12-05 17:48] LABS: URINE APPEARANCE CLEAR; URINE BILIRUBIN NEG (NEG); URINE BLOOD NEG (NEG); URINE COLOR YELLOW; URINE GLUCOSE NEG (NEG); URINE KETONE NEG (NEG); URINE LEUKOCYTE ESTERASE NEG (NEG); URINE NITRATE NEG (NEG); URINE PROTEIN NEG (NEG); URINE SPECIFIC GRAVITY 1.013 (1.003-1.035); URINE UROBILINOGEN 0.2 MG/DL (NEG)
[2016-12-05 18:00] LABS: AMPHETAMINE POS (NEG); BARBITURATES NEG (NEG); BENZODIAZEPINES POS (NEG); COCAINE NEG (NEG); MARIJUANA POS (NEG); OPIATES NEG (NEG); TRICYCLIC ANTIDEPRESSANTS POS (NEG); U METHADONE NEG (NEG)
[2016-12-05 18:03] LABS: CULTURE INDICATED? NO
[2016-12-05 18:55] LABS: POC - TROPONIN <0.05 ng/mL (<=0.05)
[2016-12-05 20:05] LABS: ARTERIAL BLD GAS O2 SATURATION 95.3 % (90.0-100.0); ARTERIAL BLOOD GAS ART SITE LEFT FEMORAL; ARTERIAL BLOOD GAS CARBOXY HB 2.7 %sat (0.0-9.0); ARTERIAL BLOOD GAS DELIVERY VENT; ARTERIAL BLOOD GAS HCO3 21.8 mmol/L; ARTERIAL BLOOD GAS PCO2 36.5 mmHg (35.0-45.0); ARTERIAL BLOOD GAS VENT MODE AC; ARTERIAL BLOOD GAS pH 7.384 (7.350-7.450); ARTERIAL DRAW? YES
[2016-12-06 04:03] LABS: ARTERIAL BLOOD GAS CARBOXY HB 1.1 %sat (0.0-9.0); ARTERIAL BLOOD GAS HCO3 27.3 mmol/L; ARTERIAL BLOOD GAS MET HB 0.9 %sat (0.0-2.0); ARTERIAL BLOOD GAS PCO2 48.1 mmHg (35.0-45.0); ARTERIAL BLOOD GAS pH 7.363 (7.350-7.450)
[2016-12-06 04:06] LABS: ARTERIAL BLOOD GAS ALLEN TEST NORMAL; ARTERIAL BLOOD GAS ART SITE LEFT RADIAL; ARTERIAL BLOOD GAS DELIVERY VENT; ARTERIAL BLOOD GAS PO2 66.4 mmHg (80.0-100); ARTERIAL BLOOD GAS VENT MODE AC; ARTERIAL DRAW? YES
[2016-12-06 05:45] LABS: BASOPHIL% 0.3 % (0-2.5); EOSINOPHIL# 0.1 X10e3 (0-0.7); EOSINOPHIL% 1.2 % (0.0-7.0); HEMATOCRIT 38.3 % (38.0-50.0); LYMPHOCYTE# 1.9 X10e3 (1.0-3.5); LYMPHOCYTE% 23.2 % (17.0-45.0); MEAN CELL VOLUME 96.2 FL (83-96); MEAN CORPUSCULAR HEMOGLOBIN 31.1 PG (28-34); MEAN CORPUSCULAR HGB CONC 32.3 g/dL (30-36); MEAN PLATELET VOLUME 7.8 FL (6.5-11.5); MONOCYTE# 0.8 X10e3 (0-1.0); MONOCYTE% 10.4 % (3.0-12.0); NEUTROPHIL# 5.3 X10e3 (1.5-7.1); NEUTROPHIL% 64.9 % (40-75); PLATELET COUNT 248 X10e3 (140-420); RED BLOOD COUNT 3.98 X10e (3.90-5.60); RED CELL DISTRIBUTION WIDTH 13.6 % (11.0-15.5); WHITE BLOOD COUNT 8.1 X10e3 (4.0-10.5)
[2016-12-06 05:50] LABS: DIFF IND NO; HEMOGLOBIN 12.4 gm/dL (13.0-16.0)
[2016-12-06 06:41] LABS: ALBUMIN SERUM 3.7 g/dL (3.5-5.0); BILIRUBIN,TOTAL 0.7 mg/dL (0.2-2.0); BUN/CREATININE RATIO 6.66; CALCIUM SERUM 8.3 mg/dL (8.4-10.2); CREATININE SERUM 0.9 mg/dL (0.6-1.4); GLOM FILT RATE Estimated 105.7 mL/min (>60); POTASSIUM 3.9 mmol/L (3.5-5.1); PROTEIN TOTAL SERUM 6.3 g/dL (6.0-8.3)
[2016-12-06 07:07] LABS: %MB 3.1 % (0.0-4.0); MB 9.6 ng/ml
[2016-12-06 07:36] LABS: INR 1.1; PARTIAL THROMBOPLASTIN TIME 28.1 SECONDS (23.5-31.3); PROTHROMBIN TIME (PATIENT) 11.4 SECONDS (9.6-11.5)
[2016-12-06 15:59] LABS: ARTERIAL BLD GAS O2 SATURATION 98.5 % (90.0-100.0); ARTERIAL BLOOD GAS CARBOXY HB 0.4 %sat (0.0-9.0); ARTERIAL BLOOD GAS MET HB 0.8 %sat (0.0-2.0); ARTERIAL BLOOD GAS PCO2 37.4 mmHg (35.0-45.0); ARTERIAL BLOOD GAS pH 7.434 (7.350-7.450)
[2016-12-06 16:00] LABS: ARTERIAL BLOOD GAS ART SITE RIGHT BRACHIAL; ARTERIAL BLOOD GAS DELIVERY VENT; ARTERIAL BLOOD GAS VENT MODE CPAP; ARTERIAL DRAW? YES
[2016-12-06] MEDS ORDERED: BUSPAR5 M1 PO (18:54)
[2016-12-06] MEDS ORDERED: OMEPRAZOLE20 M2 PO (18:55)
[2016-12-06] MEDS ORDERED: LORTAB 10-3251 EACH PO (18:55)
[2016-12-06] MEDS ORDERED: FLEXERIL10 MG PO (18:56)
== END 2016-12-08 15:47 | DRG 917 ==
LOC: CED 18:47 → CICCU2 20:50 → C5C 12-07 16:18
PROVIDERS: Emergency Medicine; Internal Medicine; Internal Medicine Pulmonary Disease
PROC: 0BH17EZ Insertion of Endotracheal Airway into Trachea, Via Natural or Artificial Opening (ICD-10-PCS; principal; 2016-12-05)
PROC: 5A1935Z Respiratory Ventilation, Less than 24 Consecutive Hours (ICD-10-PCS; 2016-12-05)
DX: T43.592A Poisoning by other antipsychotics and neuroleptics, intentional self-harm, initial encounter (principal); J96.00 Acute respiratory failure, unspecified whether with hypoxia or hypercapnia; F33.2 Major depressive disorder, recurrent severe without psychotic features; F11.20 Opioid dependence, uncomplicated; K21.9 Gastro-esophageal reflux disease without esophagitis; Z91.5 Personal history of self-harm; F17.210 Nicotine dependence, cigarettes, uncomplicated; Z81.8 Family history of other mental and behavioral disorders; T48.1X2A Poisoning by skeletal muscle relaxants [neuromuscular blocking agents], intentional self-harm, initial encounter; F19.10 Other psychoactive substance abuse, uncomplicated; M10.9 Gout, unspecified; G89.4 Chronic pain syndrome
CPT/HCPCS: 31500; 36600; 51702; 71010; 80048; 80053; 80076; 80307; 81003; 82308; 82550; 82553; 82803; 82947; 83690; 83880; 84484; 85025; 85610; 85730; 87070; 87077; 87186; 87205; 93005; 94002; 94003; 94640; 94760; 96361; 96374; 96376; 99285; C9113; G0480; J0330; J2060; J3480

== ENCOUNTER 2016-12-08 16:34 | Inpatient (IN) | payer OTHER ==
--- NOTE | ~2016-12-08 | TN ---
Unit #: [id number] #: [id number] Patient: GAVIN WINN [id number] [facility] [address] [place] [address] [id number] I MR#: [id number] NAME: GAVIN WINN ROOM: P261 Age: 41 Sex: M Admission Date: 12/08/2016 : 1975 Discharge Date: 12/09/2016 Attending Physician: Abe Christianson M.D. Primary Care Physician: Naga Caputo M.D. LOC TRANSFER NOTE IDENTIFYING DATA Mr. Wnin is a 41-year-old white male who is a resident of [place], [place] and was transferred to us from [facility]. CHIEF COMPLAINT "Accidentally overdose." HISTORY OF PRESENT ILLNESS Mr. Winn is a 41-year-old white male who was taken to [facility] after overdosing on Flexeril and Seroquel, and was brought in 12/05/2016 and was apparently suicidal at that time of overdose and reports that he does not remember overdosing and what happened before or after, and does report having history of mood disorder, having stressors including financial stressors and he refused to take phone call from his since he has been at the hospital and would not elaborate any further, but does appear to be having some relationship issues between him and his , however, he was medically cleared and then was transferred to us. Upon evaluation by me, the patient reports that he just took couple of cephalexin that was accidental, and was not intentional, it was not suicidal and he just in pain and he has been on pain medications as well, but that he is not on a danger to himself or anyone else, and was seen to be polite and pleasant and no agitation, aggression, or hostility, from [facility] and that his sputum tested positive for MRSA and he has an active upper respiratory MRSA infection and therefore, would not be able to stay on the acute psychiatric unit due to needing some constant isolation and medical attention, and the patient was not having any acute psychiatric emergency and was denying any suicidal ideations, intent, or plan. SUBSTANCE ABUSE HISTORY The patient has history of experimentation with alcohol, cannabis, opioids, and benzodiazepines in the past, but denies any current drug abuse. PAST PSYCHIATRIC HISTORY The patient has had history of inpatient psychiatric hospitalization at [facility] and he is supposed to be on Celexa and Seroquel and reports that he has been taking the medications regularly. PAST MEDICAL HISTORY The patient's medical history is significant for chronic pain. Unit #: [id number] #: [id number] Patient: GAVIN WINN. PERSONAL AND SOCIAL HISTORY A 41-year-old white male who reports that he is and lives at home with his and has fairly decent social support system. MENTAL STATUS EXAMINATION Middle-aged white male who was casually dressed with fair personal hygiene, appears to be in no acute distress or discomfort. He was awake and alert on interaction with intact orientation to time, place, and person. His mood was anxious and depressed with a congruent affect. His speech was slow and goal directed. He denies any suicidal or homicidal ideations, and also denies any auditory or visual hallucinations. His insight and judgment remain significantly impaired. DIAGNOSTIC IMPRESSION Psychiatric: Major depressive disorder, recurrent, moderate, without psychotic features. Medical: Chronic pain. Stressors: Moderate psychosocial stressors. TREATMENT PLAN The patient has presented with history of mood disorder; however, he denies any suicidal ideations, intent, or plan, and denies overdose to be a suicide attempt and does not meet criteria for involuntary psychiatric hospitalization and as such, we will recommend discharging him home and continue treatment on an outpatient basis. DISCHARGE CONDITION Stable. PROGNOSIS Fair. Dictated by... Lary Meadows/jame TD: 12/09/2016 12:52 JOB #: [id number] LOC TRANSFER NOTE Page 1 of 1 X Aeb Christianson MD X LOC TRANSFER NOTE
--- NOTE | ~2016-12-08 | HP ---
Unit #: [id number] #: [id number] Patient: GAVIN WINN [id number] [facility] [address] [place] [address] [id number] I MR#: [id number] NAME: GAVIN WINN ROOM: [facility] Age: 41 Sex: M Admission Date: 12/08/2016 : 1975 Attending Physician: Abe Christianson M.D. Admitting Physician: Abe Christianson M.D. Primary Care Physician: Naga Caputo M.D. HISTORY AND PHYSICAL HISTORY OF PRESENT ILLNESS The patient is a 41-year-old male admitted to [address] [place] [address] on 12/08/2016 for suicidal ideations with an attempt to overdose. The patient was discharged prior to history and physical being completed. Dictated by... Chai Egan/layla TD: 12/09/2016 21:17 JOB #: [id number] HISTORY AND PHYSICAL Page 1 of 1 X WALLY SHARIF APRN HISTORY AND PHYSICAL
[~2016-12-08 16:34] MED LIST changes: +BUSPAR5 M1 PO; +FLEXERIL10 MG PO; +LORTAB 10-3251 EACH PO; +OMEPRAZOLE20 M2 PO
== END 2016-12-09 12:51 | disposition home or self-care (01) | DRG 885 ==
LOC: P2L 16:34
DX: F33.1 Major depressive disorder, recurrent, moderate (principal); G89.29 Other chronic pain

== ENCOUNTER 2016-12-09 15:01 | Emergency (ER) | payer OTHER ==
--- NOTE | ~2016-12-09 | CR72 ---
[facility] A Service of [facility] & [facility] RADIOLOGY TEXT RESULTS PATIENT: GAVIN WINN LOCATION: [facility] : 75 UNIT #: [id number] AGE: [address]: Aidan Cabrera MD SEX: M ORDER DR: [id number] [facility] [address] [place], [place] [address] [id number] MR#: [id number] Acc #: [id number] NAME: GAVIN WINN : 1975 SEX: M STUDY DATE/TIME: 12/09/2016 14:42 UNIT: [facility] ROOM: STUDY DESCRIPTION: CR Chest Single View Portable Attending Physician: Aiadn Cbarera Ordering Physician: Ed Doc Lary Bernal Primary Care Physician: Naga Caputo M.D. MEDICAL IMAGING REPORT This report is preliminary unless electronic signature is present EXAM Portable chest, 12/09/2016 HISTORY 41-year-old male with cough and shortness of breath today. Positive MRSA sputum culture. COMPARISON Chest 12/08/2016 FINDINGS Frontal chest demonstrates clear lungs. No pleural effusion or pneumothorax. Heart size and mediastinum within normal limits. Pulmonary vasculature unremarkable. IMPRESSION No acute cardiopulmonary findings. Dictated by... Musa Vázquez M.D. THIS IS AN ELECTRONICALLY VERIFIED REPORT Musa Vázquez M.D. at 12/10/2016 4:48 PM KELSEA/meng TD: 12/09/2016 21:37 JOB #: [id number] MEDICAL IMAGING REPORT Page 1 of 1 COPY
== END 2016-12-09 16:20 | disposition home or self-care (01) ==
LOC: CED 15:01
DX: R84.5 Abnormal microbiological findings in specimens from respiratory organs and thorax (principal); F32.9 Major depressive disorder, single episode, unspecified; F17.210 Nicotine dependence, cigarettes, uncomplicated; Z79.899 Other long term (current) drug therapy; Z88.6 Allergy status to analgesic agent
CPT/HCPCS: 71010; 99283

== ENCOUNTER 2017-02-25 15:00 | Inpatient (IN) | payer OTHER ==
[~2017-02-25] VITALS: Ht 193 cm; Wt 99.8 kg
--- NOTE | ~2017-02-25 | PN ---
Unit #: [id number] #: [id number] Patient: GAVIN WINN JR [id number] [facility] [address] [place] [address] [id number] I MR#: [id number] NAME: GAVIN WINN JR ROOM: P264 Age: 42 Sex: M Admission Date: 02/25/2017 : 1975 Attending Physician: Abe Christianson M.D. Admitting Physician: Abe Christianson M.D. Primary Care Physician: Lary Keller PROGRESS NOTES DATE OF SERVICE 03/07/2017 DISCUSSION Mr. Winn is a 42-year-old white male who was seen today. Chart was reviewed and case was discussed with staff. He has been anxious, withdrawn, and reports persistent depressive symptoms and lack of sleep, and feelings of hopelessness and suicidal ideations. Meanwhile, she has been taking the medications and tolerating them fairly well. MENTAL STATUS EXAMINATION Middle-aged white male who is casually dressed with fair personal hygiene, appears to be in no acute distress or discomfort. He was awake and alert with intact orientation. His mood is anxious with congruent affect. His speech is slow and goal-directed. He reports having suicidal ideations but denies any homicidal ideations. His insight and judgment remain slightly impaired. TREATMENT PLAN 1. We will continue him on his current medications and treatment protocol. We will monitor response and make further adjustments as needed. 2. We will continue to follow up. Dictated by... Abe Christianson M.D. IAA/bzg TD: 03/07/2017 11:26 JOB #: [id number] Unit #: [id number] #: [id number] Patient: GAVIN WINN JR [facility] PROGRESS NOTES Page 1 of 1 X Abe Christianson MD PROGRESS NOTE
--- NOTE | ~2017-02-25 | HP ---
Unit #: [id number] #: [id number] Patient: GAVIN WINN JR [id number] [place] [address] [id number] I MR#: [id number] NAME: GAVIN WINN JR ROOM: P264 Age: 42 Sex: M Admission Date: 02/25/2017 : 1975 Attending Physician: Abe Christianson M.D. Admitting Physician: Abe Christianson M.D. Primary Care Physician: Naga Caputo M.D. HISTORY AND PHYSICAL HISTORY OF PRESENT ILLNESS Gavin is a 42-year-old male admitted on 02/25/2017 to [facility] for suicidal ideation with a plan to jump in front of a truck. PAST MEDICAL HISTORY 1. Chronic back pain. 2. Carpal tunnel syndrome. 3. History of MRSA. 4. GERD. PAST SURGICAL HISTORY 1. Left shoulder replacement. 2. Left rotator cuff surgical repair. 3. Bilateral hand carpal tunnel release. 4. Left heel bone spur removal. ALLERGIES Ibuprofen. SOCIAL HISTORY He is currently but and homeless. Smokes 1 pack of cigarettes daily. Does report binge alcohol use and occasional marijuana and crack cocaine use. 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 FAMILY HISTORY Noncontributory. REVIEW OF SYSTEMS CONSTITUTIONAL: No fever or chills. HEENT: Denies any sore throat, ear pain or runny nose. CARDIOVASCULAR: Denies chest pain, irregular heart rhythm or palpitations. CHEST: Denies shortness of breath or cough. No hemoptysis. GASTROINTESTINAL: Denies nausea, vomiting, diarrhea or chronic constipation. ENDOCRINE: Denies history of increased thirst or urination. No recent significant weight loss or gain. GENITOURINARY: Denies dysuria, frequency, or hematuria. SKIN: Denies any rashes. HEMATOLOGIC: Denies history of increased bleeding or bruising. MUSCULOSKELETAL: Denies any hot, swollen joints. No generalized muscle pain. NEUROLOGIC: Denies problems with vision or speech. No frequent, severe headaches. No numbness, tingling or weakness in any extremities. Denies Unit #: [id number] #: [id number] Patient: GAVIN WINN JR loss of bladder or bowel control. CURRENT MEDICATIONS 1. Flexeril. 2. Protonix. PHYSICAL EXAMINATION GENERAL: Alert, oriented, in no acute distress. VITAL SIGNS: Blood pressure 129/89, heart rate 107, respirations 18, temperature 98.2. HEIGHT: 6 feet 4. WEIGHT: 220 pounds. SKIN: Warm and dry without rash or lesion. HEENT: Normocephalic. TMs not viewed. Oral and nasal passages clear. Conjunctivae clear. PERRLA. EOMs intact. NECK: Supple without lymphadenopathy or thyromegaly. HEART: Regular rate and rhythm without murmur. LUNGS: Clear. ABDOMEN: Soft, nontender, without masses or hepatosplenomegaly. : Not done. EXTREMITIES: No evidence of cyanosis, clubbing or edema. Moves all without focal deficit. NEUROLOGICAL: Grossly within normal limits. Cranial Nerves: II: Visual leyva are intact. III, IV AND : Extraocular movements are intact. Pupils are equal, round and reactive to light. V: Facial sensation is grossly normal. VII: Facial movements and expression are normal. VIII: Auditory acuity grossly intact. IX, X: Uvula is midline. Phonation is normal. XI: Patient shrugs shoulders and turns head normally. XII: Tongue protrudes in the midline. Sensory and Motor Function: Sensory and motor sensation is grossly normal. Motor: moves all extremities well. Coordination: Gait is normal. Deep Tendon Reflexes: Intact. IMPRESSION 1. Psychiatric admission. 2. Gastroesophageal reflux disease. 3. Chronic back pain. 4. Carpal tunnel syndrome. 5. History of MRSA. RECOMMENDATIONS PSYCHIATRIC: Per psychiatrist. MEDICAL: No contraindication to participate in facility's activities. MEDICAL PROGNOSIS Good. MEDICAL CONDITION Stable. Dictated by... Jose RodriguezPLaurenRKandace Unit #: [id number] #: [id number] Patient: GAVIN WINN JR GALVEZ/faisal TD: 02/26/2017 18:02 JOB #: [id number] HISTORY AND PHYSICAL Page 1 of 1 X HALINA FIGUEROA APRN HISTORY AND PHYSICAL
--- NOTE | ~2017-02-25 | PN ---
Unit #: [id number] #: [id number] Patient: GAVIN WINN JR [id number] [facility] [address] [place] [address] [id number] I MR#: [id number] NAME: GAVIN WINN JR ROOM: P264 Age: 42 Sex: M Admission Date: 02/25/2017 : 1975 Attending Physician: Abe Christianson M.D. Admitting Physician: Abe Christianson M.D. Primary Care Physician: Lary Keller PROGRESS NOTES DATE March 01, 2017 DISCUSSION Mr. Winn is a 42-year-old white male, with mood disorder, who was seen today and chart was reviewed and the case was discussed with the staff. He remains anxious, withdrawn, depressed, and seclusive to himself. He reports persistent depressive symptoms and feelings of hopelessness and helplessness. Meanwhile, he has been taking the medications and tolerating them fairly well. MENTAL STATUS EXAMINATION Middle-aged white male, who was casually dressed with fair personal hygiene and appears to be in no acute distress or discomfort. He was awake and alert on interaction with intact orientation. His mood is anxious with a congruent affect. He denies any suicidal or homicidal ideations. His insight and judgment remain slightly impaired. TREATMENT PLAN 1. We will continue him on his current medications and treatment protocol, and will monitor his response to the medications, and make further adjustments as needed. 2. We will continue to followup. Dictated by... Lary Meadows/morgan TD: 03/01/2017 11:23 JOB #: [id number] Unit #: [id number] #: [id number] Patient: GAVIN WINN JR [facility] PROGRESS NOTES Page 1 of 1 X Abe Christianson MD PROGRESS NOTE
--- NOTE | ~2017-02-25 | DS ---
Unit #: [id number] #: [id number] Patient: GAVIN WINN JR [id number] [facility] [address] [place] [address] [id number] I MR#: [id number] NAME: GAVIN WINN JR ROOM: P264 Age: 42 Sex: M Admission Date: 02/25/2017 : 1975 Discharge Date: Attending Physician: Abe Christianson M.D. Primary Care Physician: Naga Caputo M.D. DISCHARGE SUMMARY IDENTIFYING DATA Mr. Montgomery is a 41-year-old white male, who is a resident of [place], [place], and is known to us from previous encounter, was brought to the hospital by his family. DISCHARGE DIAGNOSES Psychiatric: Major depressive disorder, recurrent, moderate, without psychotic features. Medical: Chronic back pain, history of methicillin-resistant Staphylococcus aureus. Stressors: Moderate psychosocial stressors. HISTORY OF PRESENT ILLNESS Please copy and paste from initial psychiatric evaluation for details. PAST PSYCHIATRIC HISTORY Please copy and paste from initial psychiatric evaluation for details. PAST MEDICAL HISTORY Please copy and paste from initial psychiatric evaluation for details. HOSPITAL COURSE The patient was admitted to the adult psychiatric unit at [facility] and was oriented to the hospital environment. Routine p.r.n. medications were initiated, and he was started back on his home medications. However, he was seen to be having significant agitation, mood swings, irritability, impulsivity, and was exhibiting persistent depressive symptoms and as such, medications were adjusted quite regularly. He was at times seen to be exhibiting med seeking behavior. Meanwhile, he was taking medications regularly and was tolerating them fairly well and was able to show a slow and therapeutic response to the medications and as such, it was decided that he will be discharged home and will continue treatment on an outpatient basis. DISCHARGE MEDICATIONS Effexor XR 75 mg a day for depression, Seroquel 50 mg in the morning and in the afternoon and 200 mg at bedtime for depression. DISCHARGE CONDITION Stable. Unit #: [id number] #: [id number] Patient: GAVIN WINN JR PROGNOSIS Fair. Dictated by... Lary Meadows/jeromel TD: 03/06/2017 08:18 JOB #: [id number] DISCHARGE SUMMARY Page 1 of 1 X Abe Christianson MD DISCHARGE SUMMARY
--- NOTE | ~2017-02-25 | PN ---
Unit #: [id number] #: [id number] Patient: GAVIN WINN JR [id number] [facility] [address] [place] [address] [id number] I MR#: [id number] NAME: GAVIN WINN JR ROOM: P264 Age: 42 Sex: M Admission Date: 02/25/2017 : 1975 Attending Physician: Abe Christianson M.D. Admitting Physician: Abe Christianson M.D. Primary Care Physician: Lary Keller PROGRESS NOTES DATE OF SERVICE 02/28/2017 DISCUSSION Mr. Winn is a 42-year-old white male who was seen today. Chart was reviewed and case was discussed with the staff. He has been anxious, withdrawn, and rather seclusive to himself. Meanwhile, he has been cooperative with treatment recommendations and has been taking the medications and tolerating them fairly well with no reported side effects. MENTAL STATUS EXAMINATION Middle-aged white male who is casually dressed with fair personal hygiene, appears to be in no acute distress or discomfort. He was awake and alert on interaction with intact orientation. His mood is anxious with congruent affect. His speech is slow and goal-directed. He denies any suicidal or homicidal ideations and also denies any auditory or visual hallucinations. His insight and judgment remain slightly impaired. TREATMENT PLAN 1. We will continue him on his current medications and treatment protocol. We will monitor his response and make further adjustments as needed. 2. We will continue to follow up. Dictated by... Lary Meadows/traci TD: 02/28/2017 14:39 JOB #: [id number] Unit #: [id number] #: [id number] Patient: GAVIN WINN JR TOVA PROGRESS NOTES Page 1 of 1 X Abe Christianson MD PROGRESS NOTE
--- NOTE | ~2017-02-25 | CO ---
Unit #: [id number] #: [id number] Patient: GAVIN WINN JR [id number] [place] [address] [id number] MR#: [id number] NAME: GAVIN WINN JR ROOM: P264 Age: 42 Sex: M Admission Date: 02/25/2017 : 1975 Attending Physician: Abe Christianson M.D. Primary Care Physician: Naga Caputo M.D. Consultation Date: 02/27/2017 CONSULTATION REPORT HISTORY OF PRESENT ILLNESS Gavin reports a history of rectal bleeding. He was seen at [facility] on 02/24/2017 just prior to admission where he was diagnosed with a hemorrhoid that had ruptured. He was treated there with medication, he is unsure what it was and since then, his bleeding has decreased. He is unable to recall his last bowel movement though and does report some mild abdominal pain that he believes is likely due to constipation. He has a history of herniated disk and reports having an MRI recently that showed several more herniated disks and reports that he has been on pain pills for the past 20 years and is concerned that these had not been continued while he is here. He reports that the back pain is more concerning than the rectal bleeding and he would like to be restarted on medications for this. Currently, he reports that the bleeding is slowing down quite a bit. Hemoglobin and hematocrit were 15.1 and 44.3 on 02/26/2017. He has no other complaints. PHYSICAL EXAMINATION CARDIAC: Regular rate and rhythm. No murmurs, gallops, or rubs. RESPIRATORY: Clear to auscultation bilaterally. ABDOMEN: Bowel sounds positive in all quadrants. No abdominal tenderness to palpation. No CVA tenderness or flank pain. ASSESSMENT AND PLAN 1. Hemorrhoids. Per Gavin's reports, the bleeding is decreasing and is improving. He did have a normal hemoglobin. We will repeat a CBC on 02/28/2017. 2. Constipation. We will begin Colace 100 mg p.o. b.i.d. 3. Chronic back pain. At this time, I have informed Gavin that I am unable to restart his pain medication. He is receiving Tylenol. We will add meloxicam 15 mg p.o. daily. Dictated by... Chai Rodriguez/jame TD: 02/28/2017 02:16 JOB #: [id number] Unit #: [id number] #: [id number] Patient: GAVIN WINN JR CONSULTATION REPORT Page 1 of 1 X HALINA FIGUEROA APRN X CONSULTATION REPORT
--- NOTE | ~2017-02-25 | PN ---
Unit #: [id number] #: [id number] Patient: GAVIN WINN JR [id number] [facility] [address] [place] [address] [id number] MR#: [id number] NAME: GAVIN WINN JR ROOM: P264 Age: 42 Sex: M Admission Date: 02/25/2017 : 1975 Attending Physician: Abe Christianson M.D. Admitting Physician: Abe Christianson M.D. Primary Care Physician: Lary Keller PROGRESS NOTES Mr. Winn is a 42-year-old white male who was seen today and chart was reviewed and case was discussed with the staff. He has been anxious, withdrawn, and rather seclusive to himself. Meanwhile, he has been cooperative with the treatment recommendations and has been taking the medications and tolerating them fairly well with no reported side effects. MENTAL STATUS EXAMINATION Young white male, who was casually dressed with fair personal hygiene, appears to be in no acute distress or discomfort. He was awake and alert on interaction with intact orientation. His mood was anxious with a congruent affect. He denies any suicidal or homicidal ideations. Also, denies any auditory or visual hallucinations. His insight and judgment remain slightly impaired. TREATMENT PLAN 1. We will continue him on his current medications and treatment protocol. We will monitor his response to the mediations and make further adjustments as needed. 2. We will continue to follow up. Dictated by... Lary Meadows/jame TD: 03/05/2017 10:17 JOB #: [id number] [facility] PROGRESS NOTES Page 1 of 1 X Abe Christianson MD PROGRESS NOTE
--- NOTE | ~2017-02-25 | PN ---
Unit #: [id number] #: [id number] Patient: GAVIN WINN JR [id number] [facility] [address] [place] [address] [id number] I MR#: [id number] NAME: GAVIN WINN JR ROOM: P264 Age: 42 Sex: M Admission Date: 02/25/2017 : 1975 Attending Physician: Abe Christianson M.D. Admitting Physician: Abe Christianson M.D. Primary Care Physician: Lary Keller PROGRESS NOTES DATE OF SERVICE 03/04/2017 DISCUSSION Mr. Winn is a 42-year-old white male who was seen today. Chart was reviewed and case was discussed with the staff. He has been anxious, withdrawn, and rather seclusive to himself and appears to be doing somewhat better and has been cooperative with the treatment recommendations as he has been taking the medications and tolerating them fairly well. MENTAL STATUS EXAMINATION Middle-aged white male who is casually dressed with fair personal hygiene, appears to be in no acute distress or discomfort. The patient was awake and alert with intact orientation. His mood is anxious with congruent affect. He denies any suicidal or homicidal ideations. His insight and judgment remain slightly impaired. TREATMENT PLAN 1. We will continue him on his current medications and treatment protocol. We will monitor his response to the medications and make further adjustments as needed. 2. We will continue to follow up. Dictated by... Lary Meadows/liudmilag TD: 03/05/2017 07:07 JOB #: [id number] Unit #: [id number] #: [id number] Patient: GAVIN WINN JR [facility] PROGRESS NOTES Page 1 of 1 X Abe Christianson MD X PROGRESS NOTE
--- NOTE | ~2017-02-25 | PA ---
Unit #: [id number] #: [id number] Patient: GAVIN WINN JR [id number] [facility] [address] [place] [address] [id number] MR#: [id number] NAME: GAVIN WINN JR ROOM: P264 Age: 42 Sex: M Admission Date: 02/25/2017 : 1975 Date of Assessment: Attending Physician: Abe Christianson M.D. Admitting Physician: Abe Christianson M.D. Primary Care Physician: Naga Caputo M.D. PSYCHIATRIC ASSESSMENT DATE OF SERVICE 02/26/2017. IDENTIFYING DATA Mr. Winn is a 41-year-old white male, who is a resident of [place], [place], and is known to us from previous encounter, was brought to the hospital by his . CHIEF COMPLAINT "Suicidal ideation and a plan today is to jump in front of a truck." HISTORY OF PRESENT ILLNESS Mr. Winn is a 41-year-old white male, who is known to us from previous encounter, was brought to the hospital accompanied by his . Upon presentation, was seen to be anxious, withdrawn, restless, agitated, irritable, and emotional, unstable, reporting suicidal ideations and verbalizing suicidal plan to jump in front of a truck and stated "I was at [facility] this morning. I felt like I was going to kill myself last night. I could not walk because I have a bulging hernia." The patient reports history of cutting his arm in 11/2016 and stated "the position I'm in the life. I feel like I am in a bad mood all the time, I get smart with people, the world on my shoulders, also not being able to work and not being able to do anything. Pain inside and outside." The patient reports that he has multiple surgeries and has treatment and has been getting pain medications and he does not like to keep taking them and that he feels he is not good with them or without them and that he stays agitated all the time and has been having significant mood swing, irritability and impulsivity and feelings of hopelessness and helplessness, and suicidal ideations with intent and plan and as such, recommendation for inpatient level of care was made and the patient was transferred to us. SUBSTANCE ABUSE HISTORY The patient reports history of alcohol, cannabis, cocaine, amphetamine and benzodiazepine abuse, but denies any current ongoing substance abuse issues. PAST PSYCHIATRIC HISTORY The patient reports history of inpatient psychiatric hospitalization at [facility] along with outpatient treatment and review of the medical records indicate currently he is on Celexa, but does not feel that it has been helping him and has not taken it in the last couple of months. Unit #: [id number] #: [id number] Patient: GAVIN WINN PAST MEDICAL HISTORY Chronic back pain, history of MRSA. ALLERGIES Ibuprofen. PERSONAL AND SOCIAL HISTORY A 41-year-old white male, who reports that he is and is unemployed and homeless and has poor social support system. MENTAL STATUS EXAMINATION A middle-aged white male, who was casually dressed with fair personal hygiene, appears to be in no acute distress or discomfort. He was awake and alert on interaction with intact orientation to time, place, and person. His mood was anxious and depressed with a congruent affect. His speech was slow and restricted in content. His thought processes were disorganized with some looseness of associations, flight of ideas, paranoia and suicidal ideations. His insight and judgment remain significantly impaired. DIAGNOSTIC IMPRESSION Psychiatric: Major depressive disorder, recurrent, moderate, without psychotic features. Medical: Chronic back pain, history of methicillin-resistant Staphylococcus aureus. Stressors: Moderate psychosocial stressors. TREATMENT PLAN 1. The patient has presented with history of mood disorder and substance abuse and has been decompensating and will need inpatient hospitalization for safety and stabilization. We will start him back on his home medications. We will adjust the medications and monitor response. 2. Supportive therapy was provided to the patient. 3. Safe, structured, and nourishing environment will be provided. ESTIMATED LENGTH OF STAY 5 to 7 days. ABILITY TO HELP SELF Limited. WILLINGNESS TO HELP SELF The patient appears to be willing to help self. STRENGTHS 1. Communicative. 2. Cooperative. PROBLEMS 1. Chronic dysphoric symptoms. 2. Poor social support system. DISCHARGE CRITERIA This will be contingent upon the patient's ability to show resolution of his depression and anxiety and his ability to stay safe to himself, particularly after discharge from the hospital. Dictated by... Unit #: [id number] #: [id number] Patient: GAVIN WINN JR, M.D. IAA/jame TD: 02/26/2017 14:03 JOB #: [id number] PSYCHIATRIC ASSESSMENT Page 1 of 1 X Abe Christianson MD PSYCHIATRIC ASSESSMENT
--- NOTE | ~2017-02-25 | DS ---
Unit #: [id number] #: [id number] Patient: GAVIN WINN JR [id number] [facility] [address] [place] [address] [id number] MR#: [id number] NAME: GAVIN WINN JR ROOM: 66 Age: 42 Sex: M Admission Date: 02/25/2017 : 1975 Discharge Date: 03/08/2017 Attending Physician: Abe Christianson M.D. Primary Care Physician: Naga Caputo M.D. DISCHARGE SUMMARY ADDENDUM REPORT Mr. Winn was scheduled to be discharged on March 06, however, the patient was reporting suicidal ideations and was refusing to contract for safety and also was reporting some homicidal ideations in general and he was seen to be a significant threat to himself and others, and as such discharge planning was cancelled and he was maintained on his home medications. Seroquel was increased to 50 mg in the morning and in the evening and 300 mg at bedtime, and with that adjustment, he was able to show a fairly decent therapeutic response and as such it was decided he would be discharged to continue treatment on outpatient basis. DISCHARGE CONDITION Stable. PROGNOSIS Fair. Dictated by... Lary Meadows/morgan TD: 03/11/2017 11:40 JOB #: [id number] DISCHARGE SUMMARY Page 1 of 1 X Abe Christianson MD X DISCHARGE SUMMARY
--- NOTE | ~2017-02-25 | PN ---
Unit #: [id number] #: [id number] Patient: GAVIN WINN JR [id number] [facility] [address] [place] [address] [id number] MR#: [id number] NAME: GAVIN WINN JR ROOM: P264 Age: 42 Sex: M Admission Date: 02/25/2017 : 1975 Attending Physician: Abe Christianson M.D. Admitting Physician: Abe Christianson M.D. Primary Care Physician: Lary Keller PROGRESS NOTES DATE 03/02/2017 DISCUSSION Mr. Winn is a 42-year-old white male who was seen today and chart was reviewed and case was discussed with the staff. He has been anxious, withdrawn though has not shown any agitation, irritability and has been rather seclusive to himself. Meanwhile, he has been taking medications and tolerating them fairly well. He denies any suicidal or homicidal ideations and as such will maintain him on his current medications and treatment protocol and will monitor response. Dictated by... Lary Meadows/faisal TD: 03/02/2017 23:23 JOB #: [id number] [facility] PROGRESS NOTES Page 1 of 1 X Abe Christianson MD PROGRESS NOTE
--- NOTE | ~2017-02-25 | PN ---
Unit #: [id number] #: [id number] Patient: GAVIN WINN JR [id number] [place] [address] [id number] MR#: [id number] NAME: GAVIN WINN JR ROOM: P264 Age: 42 Sex: M Admission Date: 02/25/2017 : 1975 Attending Physician: Abe Christianson M.D. Admitting Physician: Abe Christianson M.D. Primary Care Physician: Naga Caputo M.D. [facility] PROGRESS NOTES DATE February 27, 2017 DISCUSSION Mr. Winn is a 42-year-old white male, who was seen today and chart was reviewed and the case was discussed with the staff. He had a rough day yesterday as he was agitated and irritable and has come to the hospital stating that he wants to get off of the pain pills and that he has been abusing the pain pills that he has been getting from pain management and he does not like his life revolving around him and says he has no personality for that and then he comes here, he then changes his mind and keeps on complaining about not being able to function because of the pain without the pain medications, and was complaining of being very agitated and irritable, and though I started him on p.r.n. Thorazine had to be given to cut down on his agitation and aggression. He still remains in a very dysphoric mood as of this morning. MENTAL STATUS EXAMINATION Middle-aged white male, who was casually dressed with fair personal hygiene and appears to be in no acute distress or discomfort. He was awake and alert with impaired attention and concentration. His mood is anxious with a congruent affect. His speech is slow and tangential. His thought processes are disorganized with some looseness of associations and flight of ideas. His insight and judgment remain significantly impaired. TREATMENT PLAN 1. We will continue him on his current medications and treatment protocol, and will monitor his response to the medications, and make further adjustments as needed. 2. We will continue to followup. Dictated by... Lary Meadows/morgan TD: 02/27/2017 09:18 JOB #: [id number] Unit #: [id number] #: [id number] Patient: WINNGAVIN JR PROGRESS NOTES Page 1 of 1 X Abe Christianson MD PROGRESS NOTE
--- NOTE | ~2017-02-25 | PN ---
Unit #: [id number] #: [id number] Patient: GAVIN WINN JR [id number] [facility] [address] [place] [address] [id number] MR#: [id number] NAME: GAVIN WINN JR ROOM: P264 Age: 42 Sex: M Admission Date: 02/25/2017 : 1975 Attending Physician: Abe Christianson M.D. Admitting Physician: Abe Christianson M.D. Primary Care Physician: Lary Keller PROGRESS NOTES DATE March 03, 2017 DISCUSSION Mr. Winn is a 42-year-old white male, who was seen today and chart was reviewed and the case was discussed with the staff. He has been anxious, withdrawn, and seclusive to himself. Meanwhile, he has been cooperative with the treatment recommendations, and he has been taking the medications and tolerating them fairly well with no reported side effects. MENTAL STATUS EXAMINATION Middle-aged white male, who was casually dressed with fair personal hygiene and appears to be in no acute distress or discomfort. He was awake and alert with intact orientation. His mood is anxious with a congruent affect. He denies any suicidal or homicidal ideations. His insight and judgment remain slightly impaired. TREATMENT PLAN 1. We will continue him on his current medications and treatment protocol, and will monitor his response to the medications, and make further adjustments as needed. 2. We will continue to followup. Dictated by... Lary Meadows/morgan TD: 03/04/2017 12:31 JOB #: [id number] Unit #: [id number] #: [id number] Patient: GAVIN WINN JR [facility] PROGRESS NOTES Page 1 of 1 X Abe Christianson MD X PROGRESS NOTE
[2017-02-26 09:45] LABS: BASOPHIL% 0.4 % (0-2.5); EOSINOPHIL# 0.3 X10e3 (0-0.7); HEMATOCRIT 44.3 % (38.0-50.0); HEMOGLOBIN 15.1 gm/dL (13.0-16.0); LYMPHOCYTE# 1.8 X10e3 (1.0-3.5); LYMPHOCYTE% 27.7 % (17.0-45.0); MEAN CELL VOLUME 92.3 FL (83-96); MEAN CORPUSCULAR HEMOGLOBIN 31.5 PG (28-34); MEAN CORPUSCULAR HGB CONC 34.2 g/dL (30-36); MEAN PLATELET VOLUME 8.1 FL (6.5-11.5); MONOCYTE# 0.6 X10e3 (0-1.0); MONOCYTE% 9.7 % (3.0-12.0); NEUTROPHIL# 3.7 X10e3 (1.5-7.1); NEUTROPHIL% 58.2 % (40-75); PLATELET COUNT 267 X10e3 (140-420); RED CELL DISTRIBUTION WIDTH 14.2 % (11.0-15.5); WHITE BLOOD COUNT 6.3 X10e3 (4.0-10.5)
[2017-02-26 09:52] LABS: DIFF IND NO
[2017-02-26 09:58] LABS: URINE APPEARANCE CLEAR; URINE BILIRUBIN NEG (NEG); URINE BLOOD NEG (NEG); URINE COLOR YELLOW; URINE GLUCOSE NEG (NEG); URINE KETONE NEG (NEG); URINE LEUKOCYTE ESTERASE NEG (NEG); URINE NITRATE NEG (NEG); URINE PH 6.5 (5-8); URINE PROTEIN NEG (NEG); URINE SPECIFIC GRAVITY 1.008 (1.003-1.035)
[2017-02-26 10:04] LABS: ALBUMIN SERUM 4.3 g/dL (3.5-5.0); BILIRUBIN,TOTAL 0.6 mg/dL (0.2-2.0); BUN/CREATININE RATIO 7.77; CALCIUM SERUM 9.7 mg/dL (8.4-10.2); CREATININE SERUM 0.9 mg/dL (0.6-1.4); POTASSIUM 4.2 mmol/L (3.5-5.1)
[2017-02-26 10:16] LABS: AMPHETAMINE POS (NEG); BARBITURATES NEG (NEG); BENZODIAZEPINES NEG (NEG); COCAINE NEG (NEG); MARIJUANA POS (NEG); OPIATES NEG (NEG); TRICYCLIC ANTIDEPRESSANTS NEG (NEG); U METHADONE NEG (NEG)
[2017-02-28 09:57] LABS: BASOPHIL% 0.7 % (0-2.5); EOSINOPHIL# 0.2 X10e3 (0-0.7); EOSINOPHIL% 4.4 % (0.0-7.0); HEMATOCRIT 42.4 % (38.0-50.0); HEMOGLOBIN 14.2 gm/dL (13.0-16.0); LYMPHOCYTE% 37.9 % (17.0-45.0); MEAN CELL VOLUME 92.5 FL (83-96); MEAN CORPUSCULAR HGB CONC 33.5 g/dL (30-36); MEAN PLATELET VOLUME 8.1 FL (6.5-11.5); MONOCYTE# 0.5 X10e3 (0-1.0); MONOCYTE% 9.7 % (3.0-12.0); NEUTROPHIL# 2.5 X10e3 (1.5-7.1); NEUTROPHIL% 47.3 % (40-75); PLATELET COUNT 229 X10e3 (140-420); RED BLOOD COUNT 4.58 X10e (3.90-5.60); WHITE BLOOD COUNT 5.4 X10e3 (4.0-10.5)
[2017-02-28 10:06] LABS: DIFF IND NO
== END 2017-03-08 09:30 | disposition home or self-care (01) | DRG 885 ==
LOC: P2L 17:03
PROVIDERS: Psychiatry & Neurology Psychiatry
DX: F33.1 Major depressive disorder, recurrent, moderate (principal); R45.851 Suicidal ideations; G89.29 Other chronic pain; M54.9 Dorsalgia, unspecified; Z86.14 Personal history of Methicillin resistant Staphylococcus aureus infection; Z59.0 Homelessness; K21.9 Gastro-esophageal reflux disease without esophagitis; Z96.612 Presence of left artificial shoulder joint; Z88.6 Allergy status to analgesic agent; G56.00 Carpal tunnel syndrome, unspecified upper limb; F17.210 Nicotine dependence, cigarettes, uncomplicated; K64.9 Unspecified hemorrhoids; K59.00 Constipation, unspecified
CPT/HCPCS: 80053; 80307; 81003; 85025; 86592; J3486